=== PATIENT | male | born 1980 | race Caucasian/White ===

== ENCOUNTER 2019-12-21 09:29 | Emergency (ER) | payer MEDICARE, MEDICAID, SELFPAY ==
[2019-12-21 09:30] VITALS: BP 122/78; PULSE 72; RESP 18; TEMP 36.5; O2SAT 100; BMI 27.3
--- NOTE | 2019-12-21 09:45 | DI.US.S_ITS ---
PROCEDURE: US PERIPH VENOUS UP EXTREM LT INDICATIONS: LT UPPER EXT PAIN, R/O DVT TECHNIQUE: Real-time imaging, as well as color and pulse Doppler interrogation, was performed of the left upper extremity deep veins from the inferior neck to the antecubital fossa. COMPARISON: None. FINDINGS: The internal jugular vein, visualized portions of the subclavian vein, axillary, and brachial veins are free of intraluminal thrombus. Where physically possible, the veins are normally compressible. Color and pulse Doppler demonstrate normal intraluminal flow, with expected phasicity and pulsatility. Additional scanning of the cephalic and basilic veins of the superficial system demonstrate normal compressibility, without thrombus. In the area of erythema, there is a possible phlegmon versus complex fluid collection with low level internal echoes measuring 1.4 x 0.5 x 1.9 cm. IMPRESSION: No evidence of DVT Possible phlegmon versus developing abscess seen in the area of concern at the proximal forearm. Dictated by: Anderson Bravo M.D. on 12/21/2019 at 10:44 Approved by: Anderson Bravo M.D. on 12/21/2019 at 10:45
--- NOTE | 2019-12-21 10:05 | ED.SKABFB ---
HPI - Skin/Abscess/Foreign Bdy General Chief complaint: Skin/Abscess/Foreign Body Stated complaint: infection in left arm Time Seen by Provider: 12/21/19 09:49 Source: patient Mode of arrival: Ambulatory Limitations: no limitations History of Present Illness HPI narrative: CC: Recurrent lump in his left forearm. HPI: The patient is a 39-year-old male who comes into the emergency department having been sent by his primary care physician for a 2nd opinion. The patient has a recurrent lump that forms in in his proximal left forearm over the ulna that is approximately 2 cm in diameter. He states that it has been present for the last 2 months in varying states. He has been seen in multiple ERs including [facility] and was placed on doxycycline. He denies any significant pain or discomfort at this time. He states he will be placed on antibiotic it will disappear for brief time. And then it will recur. The patient has a history of transposition of the great vessels surgically repaired at . He has had mitral valve prolapse with 3 mitral valve surgeries. 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 The patient and his mother seem to be upset that the nodule keeps recurring and no but he can not exactly tell them what is going on. He denies a history of ulcerative colitis Crohn's disease or erythema nodosum. To his knowledge he has not been stung or bitten by any insect. He denies that he has had any recent fever chills or sweats as well as a headache chest pain cough shortness of breath abdominal pain nausea vomiting. He denies a history of diabetes mellitus or asthma. Related Data Home Medications Medication Instructions Recorded Confirmed Fluticasone Propionate (FLONASE) #0 03/27/11 09/23/18 POTASSIUM CHLORIDE (MICRO-K) 10 meq PO QDAY #0 03/27/11 09/23/18 albuterol sulfate [Proventil HFA] 0.09 mg IH #0 03/27/11 09/23/18 eplerenone 25 mg PO QDAY #0 03/27/11 09/23/18 fluticasone propionate [Flovent #0 03/27/11 09/23/18 HFA] furosemide [Lasix] 40 mg PO QDAY #0 03/27/11 09/23/18 Previous Rx's Medication Instructions Recorded doxycycline hyclate 100 mg PO BID #14 cap 12/21/19 Allergies Allergy/AdvReac Type Severity Reaction Status Date / Time lisinopril Allergy Intermediate Cough Verified 12/21/19 09:35 adhesive [ADHESIVE] Allergy Unknown Unverified 08/27/17 12:13 carvedilol AdvReac Severe Depression Verified 12/21/19 09:35 spironolactone AdvReac Severe Hallucinati Verified 12/21/19 09:35 ng Review of Systems Review of Systems Narrative: His review of systems were all negative except for those mentioned in the history of present illness. Patient History Social History Smoking Status: Never smoker Smoking Status: Never smoker alcohol intake frequency: 0-2 drinks per day Substance Use Type: marijuana Exam Narrative Exam Narrative: PHYSICAL EXAM: CONSTITUTIONAL: Awake, Alert, Oriented, Coherent, Cooperative in NAD. Does not appear toxic or ill. HEAD: AT/NC EENT: PERRL, FROM of eyes, MOUTH: Wearing a mask NECK: Supple, no obvious JVD, Trachea is midline without stridor, THORAX: No deformity, retractions, chest wall tenderness. LUNGS: Clear, symmetrical breath sounds without respiratory distress. HEART: Patient has regular rhythm with a grade 1-2/6 systolic murmur along left sternal border. ABDOMEN: Soft, non-tender, normal bowel sounds without guarding, rebound, rigidity or palpable mass. EXTREMITIES: Left arm the patient has full range of motion of his fingers with good capillary refill and sensation radial pulses 2+. The patient over the proximal forearm directly over the ulna just distal to the elbow is a 2 cm diameter erythematous nodule. It is minimally warm nontender. The patient has a in off centered scab that almost looks like an insect bite and the center of the nodule is questionably mildly soft. This may represent some fluctuance. SKIN: No rash, bruising, petechiae or purpura otherwise noted. NEURO: Awake, alert, oriented, conversive, cranial nerves II-XII are symmetrical , moves all 4 extremities and is ambulatory. Initial Vital Signs Initial Vital Signs: Vital Signs Temperature 97.7 F 12/21/19 09:30 Pulse Rate 72 12/21/19 09:30 Respiratory Rate 18 12/21/19 09:30 Blood Pressure 122/78 12/21/19 09:30 Pulse Oximetry 100 12/21/19 09:30 Course Course Course Narrative: 1102: Ultrasound of the patient's arm revealed: MPRESSION: No evidence of DVT Possible phlegmon versus developing abscess seen in the area of concern at the proximal forearm. Will discuss findings with patient and options. 1238: abscess drained. I discussed the options with the patient. The center of the nodule was soft and felt fluctuant. PROCEDURE NOTE: PREP: The nodule in the area around the nodule was prepped with Betadine followed by Chloraseptic prep. ANESTHESIA: 1 cc of 1% lidocaine was infiltrated in the apex of the nodule. PROCEDURE: A crisscross incision was made over the apex of the nodule. The corners were then excised with scissors. A very small amount of pus and fluid was removed. A wound culture was obtained. The patient tolerated the procedure well and it was bandage. The patient was placed again on doxycycline 100 mg twice a day for the next7 days. He was advised to be seen in per follow-up by his primary care physician in 2 days for wound check. Orders Ordered: ED Orders 12/21/19 12:35 Wound Culture and Gram Stain Stat Discontinued Medications Lidocaine HCl (Xylocaine 1% (Pf)) 2 ml SUBCUT NOW ONE Stop: 12/21/19 12:19 Last Admin: 12/21/19 12:22 Dose: 2 ml Documented by: MARY Vital Signs Vital signs: Vital Signs - 8 hr 12/21/19 12:48 Pulse Rate 67 Respiratory Rate 12 Blood Pressure 120/72 Pulse Oximetry 99 MDM - Skin/Abscess/Foreign Bdy Medical Records Attestation: I reviewed the patient's medical records. Lab Data Attestation: I reviewed the patient's lab results. Result diagrams: 12/21/19 10:03 12/21/19 10:03 Labs: Lab Results 12/21/19 12/21/19 12/21/19 Range/Units 10:03 10:03 10:03 WBC 7.2 (4.5-11.0) X10^3/uL RBC 4.28 L (4.5-5.9) X10^6/uL Hgb 13.4 L (13.5-17.5) g/dL Hct 40.9 L (41-53) % MCV 95.7 (80-100) fL MCH 31.3 (26-34) PG MCHC 32.7 (30-36) % RDW 15.3 H (11.6-14.8) % Plt Count 177 (150-400) X10^3/uL Neut % (Auto) 75.6 H (50-75) % Lymph % (Auto) 15.3 L (25-40) % [place] % (Auto) 7.1 (3-14) % Eos % (Auto) 1.4 L (2-4) % Baso % (Auto) 0.6 (0-2) % Neut # (Auto) 5500 (4644-2291) /uL Lymph # (Auto) 1100 (2427-3946) /uL [place] # (Auto) 500 (0-900) /uL Eos # (Auto) 100 (0-450) /uL Baso # (Auto) 0 (0-100) /uL ESR (0-15) MM/HR PT 41.6 H (10.1-12.7) SECONDS INR 3.7 H (0.9-1.3) Sodium 136 L (137-145) mmol/L Potassium 4.1 (3.4-5.1) mmol/L Chloride 103 (98-107) mmol/L Carbon Dioxide 27 (22-32) mmol/L BUN 11 (9-20) mg/dL Creatinine 0.56 L (0.66-1.25) mg/dL Estimated GFR > 60.0 (>60) mL/min BUN/Creatinine Ratio 19.6 (6-22) Glucose 153 H (70-100) mg/dL Calcium 8.5 (8.4-10.2) mg/dL Total Creatine Kinase (55-170) U/L C-Reactive Protein (<1.0) mg/dL 12/21/19 12/21/19 Range/Units 10:24 10:24 WBC (4.5-11.0) X10^3/uL RBC (4.5-5.9) X10^6/uL Hgb (13.5-17.5) g/dL Hct (41-53) % MCV (80-100) fL MCH (26-34) PG MCHC (30-36) % RDW (11.6-14.8) % Plt Count (150-400) X10^3/uL Neut % (Auto) (50-75) % Lymph % (Auto) (25-40) % [place] % (Auto) (3-14) % Eos % (Auto) (2-4) % Baso % (Auto) (0-2) % Neut # (Auto) (3264-7791) /uL Lymph # (Auto) (3378-2370) /uL [place] # (Auto) (0-900) /uL Eos # (Auto) (0-450) /uL Baso # (Auto) (0-100) /uL ESR 15 (0-15) MM/HR PT (10.1-12.7) SECONDS INR (0.9-1.3) Sodium (137-145) mmol/L Potassium (3.4-5.1) mmol/L Chloride (98-107) mmol/L Carbon Dioxide (22-32) mmol/L BUN (9-20) mg/dL Creatinine (0.66-1.25) mg/dL Estimated GFR (>60) mL/min BUN/Creatinine Ratio (6-22) Glucose (70-100) mg/dL Calcium (8.4-10.2) mg/dL Total Creatine Kinase 42 L (55-170) U/L C-Reactive Protein 1.7 H (<1.0) mg/dL Discharge Plan Departure Patient Disposition: Home Clinical Impression: Nodule of skin of left forearm Abscess of skin Qualifiers: Site of cutaneous abscess: extremity Site of cutaneous abscess of extremity: upper extremity Laterality: left Qualified Code(s): L02.414 - Cutaneous abscess of left upper limb Discharge Date/Time: 12/21/19 12:49 Instructions: DI for Cellulitis -- Adult, DI for Wound Infection, DI for Skin Abscess Activity Restrictions/Additional Instructions: 1. Follow-up with your family physician for a wound check in 48-72 hours. 2. Change to the overlying dressing as needed and allow it to did to drain. 3. Apply warm compresses every 2 hours for the next 24-48 hours as needed while awake for relief of discomfort. 4. Take the doxycycline as prescribed. 5. Follow your pain protocol as prescribed by your physicians. Prescriptions: New doxycycline hyclate 100 mg capsule 100 mg PO BID Qty: 14 RF: 0 No Action eplerenone 25 MG tablet 25 mg PO QDAY Qty: 0 RF: 0 furosemide [Lasix] 20 MG tablet 40 mg PO QDAY Qty: 0 RF: 0 fluticasone propionate [Flovent HFA] 10.6 GM HFA aerosol inhaler Qty: 0 RF: 0 albuterol sulfate [Proventil HFA] 90 MCG/PUFF HFA aerosol inhaler 0.09 mg IH Qty: 0 RF: 0 POTASSIUM CHLORIDE (MICRO-K) 10 meq PO QDAY Qty: 0 RF: 0 Fluticasone Propionate (FLONASE) Qty: 0 RF: 0 Referrals: Wanda Hughes MD [Primary Care Provider] -
[2019-12-21 10:12] LABS: Add Manual Diff / Slide Review NO; Basophils Absolute Auto 0 /uL (0-100); Basophils Percent Auto 0.6 % (0-2); Eosinophils Absolute Auto 100 /uL (0-450); Eosinophils Percent Auto 1.4 % (2-4); Hematocrit 40.9 % (41-53); Hemoglobin 13.4 g/dL (13.5-17.5); Lymphocytes Absolute Auto 1100 /uL (1100-4500); Lymphocytes Percent Auto 15.3 % (25-40); Mean Corpuscular HGB Conc 32.7 % (30-36); Mean Corpuscular Hemoglobin 31.3 PG (26-34); Mean Corpuscular Volume 95.7 fL (80-100); Monocytes Absolute Auto 500 /uL (0-900); Monocytes Percent Auto 7.1 % (3-14); Neutrophils Absolute Auto 5500 /uL (1500-7000); Neutrophils Percent Auto 75.6 % (50-75); Platelet Count 177 X10^3/uL (150-400); Red Blood Cell Count 4.28 X10^6/uL (4.5-5.9); Red Cell Distribution Width 15.3 % (11.6-14.8); White Blood Cell Count 7.2 X10^3/uL (4.5-11.0)
[2019-12-21 10:21] LABS: INR 3.7 (0.9-1.3); Prothrombin Time 41.6 SECONDS (10.1-12.7)
[2019-12-21 10:26] LABS: BUN Creatinine Ratio 19.6 (6-22); Blood Urea Nitrogen 11 mg/dL (9-20); Calcium 8.5 mg/dL (8.4-10.2); Carbon Dioxide 27 mmol/L (22-32); Chloride 103 mmol/L (98-107); Estimated Glomerular Filt Rate > 60.0 mL/min (>60); Glucose 153 mg/dL (70-100); HEMOLYSIS < 15 (0-50); Potassium 4.1 mmol/L (3.4-5.1); Sodium 136 mmol/L (137-145)
[2019-12-21 10:35] LABS: C-Reactive Protein Quant 1.7 mg/dL (<1.0); Creatine Kinase 42 U/L (55-170)
[2019-12-21 10:42] LABS: Erythrocyte Sedimentation Rate 15 MM/HR (0-15)
[2019-12-21] MEDS: LIDOCAINE 1% (PF) 2 ML SUBCUT (12:22)
[2019-12-21 12:48] VITALS: BP 120/72; PULSE 67; RESP 12; O2SAT 99
== END 2019-12-21 12:49 | disposition home or self-care (01) ==
PROVIDERS: Emergency Provider Emergency Medicine; Family Provider Internal Medicine; PCP Family Medicine
DX: L02.414 Cutaneous abscess of left upper limb (principal); R22.32 Localized swelling, mass and lump, left upper limb
CPT/HCPCS: 10060; 36415; 80048; 82550; 85025; 85610; 85651; 86140; 87070; 87075; 87077; 87147; 87186; 87205; 93971; 99284

== ENCOUNTER 2022-01-15 08:15 | Outpatient (RCR) | payer MEDICARE, MEDICAID, SELFPAY ==
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
--- NOTE | 2021-11-29 19:09 | PT.OPPOC ---
Physical, Occupational & Speech Therapy At [facility] Current Diagnoses Lesion of radial nerve, left upper limb (11/29/21) Pain in left shoulder (11/29/21) Muscle weakness (generalized) (11/29/21) Lateral epicondylitis, left elbow (11/29/21) Visit Care Team Role Provider Type Other Providers Specialty: Address: Phone: Fax: Email: Wanda Hughes MD Family Provider Non-Staff Primary Care Provider Specialty: Family Practice Address: [address] [place], [address] Fax: Email: Sylwia Murray Attending Provider Non-Staff Referring Provider Specialty: Family Practice Address: [id number] [place] [address], [place] [address], [place], [address] Email: Plan Of Care PT-OP-T Assessment and Plan Start: 11/22/21 17:45 Freq: Status: Active Protocol: Document 11/29/21 10:34 LRN (Rec: 11/29/21 12:45 LRN [id number]) Physical Therapy Assessment Rehab Potential Rehabilitation Potential Good Evaluation Complexity Number of Personal Factors/Comorbidities 3 or More Number of Body Systems Impaired 4 or More Clinical Presentation at Evaluation Evolving Impairments Impairments Activity Tolerance,Pain, Posture,Soft Tissue Mobility, Strength Goals Three Impairment Pain limiting L arm mobility ( ellbow ext w/sup/pron of forearm, shldr AB) Impairment Painful twisting L arm (into IR, and L forearm sup/pron). Pain in L arm and hand rated 5 /10 with decreased sensation and tingling. Short Term Goal (STG) Eliminate onset of occasional decreased sensation/tingling in L arm first in the morning. STG Duration 01/15/22 Group Home Goal (LTG) Decrease pain with L arm mobility, pt able to tighten wrenches with minmal to no pain. LTG Duration 02/27/22 Two Impairment L arm weakness Short Term Goal (STG) Pt able to lift the bigger cat at home without difficulty. 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 LTG Duration 02/27/22 One Impairment HEP Short Term Goal (STG) Pt will be educated in self care methods for pain management (ice, heat) Group Home Goal (LTG) Pt will be independent in a self care HEP. LTG Duration 02/27/22 Assessment Summary Assessment Pt presents with c/o pain at the medial head of the L Triceps brachii on the radial side near the lateral epicondylitis. He does present with pain on wrist extension, but today his primary area of complaint was the the triceps brachii. He did not appear to have excessive complaints of pain the L lateral epicondyle on palpation, execept when he was in full elbow extension. His L lateral epicondylitis appears to be improving, but he shows dysfunction with the L triceps causing pain on elbow extension and shoulder AROM. The pt will benefit from skilled physical therapy to promote resolution of his elbow pain at the L lateral epicondyle and at the L triceps brachii, which may also include exercise for the L shoulder. If pt is not able to progress well in 4-6 weeks further assessment to the L elbow/shoulder would be appropriate. Treatment will be hindered due to his pacemaker preventing use of electrical modalities that could help decrease pain and inflammation. Physical Therapy Plan Frequency and Duration Frequency of Treatment 2x/Week Plan of Care Start Date 11/29/21 Plan of Care End Date 02/27/22 Therapeutic Interventions Therapeutic Interventions Home Exercise Program,Joint Mobilizations,Manual Therapy, Patient/Caregiver Education, Self-Care/Home Management,Soft Tissue Mobilization, Therapeutic Exercises Modalities Cold Pack/Ice Massage,Hot Packs Next Visit Focus/Plan Next Note Type Treatment Note Next Visit Plan Precaution: Pacemaker. Recheck L elbow strength and shoulder. Assess UE neural tension (caution due to Radial n lesion). Stretching of L wrist extensors and gentle elbow flex; Strengthening L wrist f/b stretching and ice massage at lateral epicondyle/medial triceps brachii to end. MFR at lateral epicondyle (guasha scraping), JMT to L carpals & distal ulna. Pt education in use of ice/ heat for pain management at home. L elbow/shoulder ROM and strengthening as tolerated. Plan of Care Dates Plan of Care Start Date 11/29/21 Plan of Care End Date 02/27/22 Electronically Signed by: Meg Mccall, PT 11/29/21 5522 If you are in agreement with this Plan of Care, please return a signed and dated copy. I have reviewed this Plan of Care and certify that the skilled therapy services above are required to meet the patient?s needs. Physician Signature Date Printed Name and Credentials Clinical Instructor Signature Printed Name and Credentials
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
== END 2022-01-16 10:16 | disposition home or self-care (01) ==
LOC: PHYS 08:15
PROVIDERS: Family Provider Family Medicine; PCP Family Medicine; Referring Provider Family Medicine Sports Medicine; Visit Provider Family Medicine Sports Medicine
DX: M77.12 Lateral epicondylitis, left elbow (principal); G56.32 Lesion of radial nerve, left upper limb; M62.81 Muscle weakness (generalized); M25.512 Pain in left shoulder
CPT/HCPCS: 97010; 97110; 97140; 97162; 97535

== ENCOUNTER → 2022-04-10 07:29 | Outpatient (CLI) | payer MEDICARE, MEDICAID, SELFPAY ==
[2022-04-10 08:46] LABS: Influenza A - CEPHEID Flu A POSITIVE (NEGATIVE); Influenza B - CEPHEID Flu B NEGATIVE (NEGATIVE); Respiratory Syncytial Virus Negative (Negative)
[2022-04-10 09:31] LABS: COVID-19 CEPHEID 4-PLEX PCR Negative (Negative)
== END ==
PROVIDERS: Family Provider Family Medicine; PCP Family Medicine; Visit Provider Nurse Practitioner Family
DX: R19.7 Diarrhea, unspecified (principal); R05.1 Acute cough; R06.2 Wheezing
CPT/HCPCS: 0241U